=== PATIENT | female | born 1940 | race Caucasian/White ===

== ENCOUNTER → 2024-04-12 | Outpatient (CLI) | payer OTHER, SELFPAY ==
--- NOTE | 2024-04-12 13:30 | XR_ITS ---
Examination: CT abdomen without intravenous contrast. Coronal 2-D reconstructions. Sagittal 2-D reconstructions. Date and time of exam:April 12, 2024 1345 hrs. Indications: Upper abdominal pain several months Comparison: 04/24/2023 CTDI: vol (mGy): 7.7 DLP: (mGycm): 231 Technique: Axial images of the abdomen have been obtained, 3 mm slice thickness, without intravenous contrast 2-D sagittal coronal reconstructions 3-D reconstructions Findings: no focal liver lesions Absent gallbladder Splenule Absent gallbladder 22 mm fat-containing left adrenal mass Moderate bilateral renal parenchymal scar formation Right extrarenal pelvis Aorta normal size Pancreatic head appears prominent Impression: Recommend MRI abdomen pre and postcontrast, MRCP to exclude mass head of the pancreas
== END | disposition home or self-care (01) ==
LOC: CCTX 13:25
PROVIDERS: PCP Internal Medicine; Referring Provider Internal Medicine; Visit Provider Internal Medicine
DX: K86.89 Other specified diseases of pancreas (principal)
CPT/HCPCS: 74150

== ENCOUNTER → 2024-04-29 | Outpatient (CLI) | payer OTHER, SELFPAY ==
[2024-04-29 12:45] LABS: Collection Type, Urine Clean Catch
[2024-04-29 13:09] LABS: Basophils # (Auto) 0.1 Thou/mm3 (0.0-0.2); Basophils % (Auto) 1 % (0-2.5); Eosinophils # (Auto) 0.2 Thou/mm3 (0.0-0.5); Eosinophils % (Auto) 1 % (0-10); Hematocrit 42.4 % (36.0-46.0); Hemoglobin 13.6 g/dL (12.0-16.0); Immature Granulocytes % (Auto) 0 % (0-0); Immature Granulocytes Auto 0.06 Thou/mm3 (0.00-0.00); Lymphocytes # (Auto) 1.7 Thou/mm3 (1.0-4.8); Lymphocytes % (Auto) 11 % (10-50); Mean Corpuscular HGB Conc 32.1 g/dl (31.0-37.0); Mean Corpuscular Hemoglobin 30.9 pg (25.0-35.0); Mean Corpuscular Volume 96 fL (80-100); Monocytes % (Auto) 6 % (0-12); Neutrophils # (Auto) 12.4 Thou/mm3 (1.8-7.7); Neutrophils % (Auto) 81 % (37-80); Nucleated Red Blood Cell % 0 /100 WBC (0); Platelet Count 238 Thou/mm3 (140-440); RDW Standard Deviation 47.1 fL (36.4-46.3); White Blood Count 15.4 Thou/mm3 (3.6-11.0)
[2024-04-29 13:16] LABS: Bacteria,Urine 1+; Bilirubin,Urine Negative (Negative); Blood,Urine Negative (Negative); Clarity,Urine Turbid (Clear/Hazy); Color,Urine Lt-Yellow (Lt Yel-Yel); Glucose, Urine 4+ (Negative); Ketones,Urine Trace (Negative); Leukocyte Esterase,Urine Positive (Negative); Nitrite,Urine Positive (Negative); Protein,Urine Trace (Neg - Trace); RBC,Urine 12 /hpf (0-3); Specific Gravity,Urine 1.024 (1.001-1.035); Squamous Epithelial Cell,Urine 1 /hpf (0-5); Urobilinogen,Urine Negative mg/dL (0.0-1.0); WBC,Urine 54 /hpf (0-5)
[2024-04-29 13:22] LABS: Culture Indicated,Urine Yes
[2024-04-29 13:24] LABS: Glucose Estimated Average 232 mg/dL (80-131); Hemoglobin A1C 9.7 % Hgb (4.8-6.0)
[2024-04-29 13:26] LABS: Creatinine MALB Rnd Ur 84 mg/dL (30-125); Microalbumin Creat Ratio 27 mg/gCrea (<30); Microalbumin, Random Urine 23 mg/L (0-300)
[2024-04-29 13:32] LABS: Alanine Aminotransferase 15 U/L (10-49); Albumin, Serum 4.1 gm/dL (3.4-4.8); Albumin/Globulin Ratio 1.4 (1.2-2.2); Alkaline Phosphatase 121 U/L (46-116); Anion Gap 12 (7-16); Aspartate Amino Transferase 18 U/L (0-34); BUN/Creatinine Ratio 22 Ratio (12-20); Bilirubin,Total 0.6 mg/dL (0.3-1.2); Blood Urea Nitrogen 24 mg/dL (9-23); Calcium 9.1 mg/dL (8.3-10.6); Calcium (Corrected) 9.1 mg/dL (8.5-10.1); Carbon Dioxide 23.3 mMol/L (20.0-31.0); Cardiac Risk Estimate 1.8 RATIO (3.7-5.6); Chloride 105 mMol/L (98-107); Cholesterol 135 mg/dL (132-200); Creatinine (Component) 1.1 mg/dL (0.6-1.3); Globulin 2.9 gm/dL (2.3-3.5); Glucose 266 mg/dL (74-106); HDL Cholesterol 76 mg/dL (40-60); LDL Cholesterol,Calculated 33 mg/dL (0-130); Osmolality,Calculated 292 (275-295); Potassium 3.8 mMol/L (3.4-5.1); Sodium 140 mMol/L (136-145); Thyroid Stimulating Hormone 6.21 uIU/mL (0.55-4.78); Triglycerides 131 mg/dL (30-150); eGFR 50 See Note
[2024-04-29 14:11] LABS: Band Neutrophils (Manual) 4 % (0-6); Eosinophils (Manual) 2 % (0-4); Lymphocytes (Manual) 12 % (20-44); Monocytes (Manual) 4 % (2-9); Neutrophils (Manual) 78 % (50-70)
== END | disposition home or self-care (01) ==
LOC: COPL 11:39
PROVIDERS: PCP Internal Medicine; Referring Provider Internal Medicine; Visit Provider Internal Medicine
DX: E03.9 Hypothyroidism, unspecified (principal); I10 Essential (primary) hypertension; K21.9 Gastro-esophageal reflux disease without esophagitis; E11.65 Type 2 diabetes mellitus with hyperglycemia; R32 Unspecified urinary incontinence
CPT/HCPCS: 36415; 80053; 80061; 81001; 82043; 82570; 83036; 84443; 85025; 87077; 87086; 87186

== ENCOUNTER → 2024-05-27 | Outpatient (CLI) | payer OTHER, SELFPAY ==
--- NOTE | 2024-05-27 | XR_ITS ---
MRI abdomen, without contrast. MRCP Date and time of exam: May 27, 2024 at 1448 hours INDICATIONS: Worsening abdominal pain beginning 2023, pancreatic head appears prominent on CT abdomen pelvis April 12, 2024 Technique: Multiple axial and coronal images of the abdomen have been obtained with the Siemens 1.5T MRI scanner. Images obtained included T1 weighted transverse images, T2-weighted transverse images, T2-weighted transverse images fat-suppressed, T2 weighted haste fat suppressed transverse images, T1 weighted images, in and out of phase images, T2-weighted coronal images, breath hold, T2 weighted haze coronal images as well as T2 weighted coronal thick slab images, MRCP. Findings: No focal liver lesions Absent gallbladder Common hepatic duct 5.6 mm No common bile duct stones noted No pancreatic mass or dilated pancreatic duct No ascites Severe right moderate left renal parenchymal scar formation, no hydronephrosis IMPRESSION: No common hepatic or common bile duct stones No pancreatic mass is noted on this study Recommend 6 month follow-up abdomen sonogram
--- NOTE | 2024-05-27 14:00 | XR_ITS ---
Examination: MRI abdomen with intravenous contrast. MRI abdomen without intravenous contrast. Date and time of exam: May 27, 2024 at 1448 hours INDICATIONS: Generalized abdominal pain several months with prominent pancreatic head on CT abdomen April 12, 2024 Technique: Multiple axial, sagittal and coronal sections of the abdomen obtained. Transverse images, TR 6020, TE 107. T1 weighted transverse images, TR 582, TE 9.5. T2-weighted sagittal images, TR 4000, TE 105. T2-weighted sagittal images, TR 4000, TE 5. Coronal images, TR 4210, TE 107. Axial and coronal images are obtained post 20 cc intravenous injection, gadolinium. Findings: No focal liver lesions No common hepatic or common bile duct stones Pancreas does not appear prominent on this examination No bowel obstruction No hydronephrosis Aorta normal size No ascites No retroperitoneal lymphadenopathy IMPRESSION: Pancreas does not appear prominent on this study Recommend six-month abdominal sonography follow-up with specific attention to the pancreas
== END | disposition home or self-care (01) ==
PROVIDERS: PCP Student in an Organized Health Care Education/Training Program; Referring Provider Student in an Organized Health Care Education/Training Program; Visit Provider Student in an Organized Health Care Education/Training Program
DX: R93.5 Abnormal findings on diagnostic imaging of other abdominal regions, including retroperitoneum (principal)
CPT/HCPCS: 74183; A9579; S8037; 74181

== ENCOUNTER → 2024-06-03 | Outpatient (CLI) | payer OTHER, SELFPAY ==
[2024-06-03 11:33] LABS: Basophils # (Auto) 0.1 Thou/mm3 (0.0-0.2); Basophils % (Auto) 1 % (0-2.5); Eosinophils # (Auto) 0.6 Thou/mm3 (0.0-0.5); Eosinophils % (Auto) 6 % (0-10); Hematocrit 40.1 % (36.0-46.0); Hemoglobin 13.1 g/dL (12.0-16.0); Immature Granulocytes % (Auto) 0 % (0-0); Immature Granulocytes Auto 0.04 Thou/mm3 (0.00-0.00); Lymphocytes # (Auto) 1.6 Thou/mm3 (1.0-4.8); Lymphocytes % (Auto) 16 % (10-50); Mean Corpuscular HGB Conc 32.7 g/dl (31.0-37.0); Mean Corpuscular Hemoglobin 30.5 pg (25.0-35.0); Mean Corpuscular Volume 94 fL (80-100); Monocytes # (Auto) 0.9 Thou/mm3 (0.0-0.8); Monocytes % (Auto) 9 % (0-12); Neutrophils # (Auto) 6.6 Thou/mm3 (1.8-7.7); Neutrophils % (Auto) 68 % (37-80); Nucleated Red Blood Cell % 0 /100 WBC (0); Platelet Count 235 Thou/mm3 (140-440); RDW Standard Deviation 50.5 fL (36.4-46.3); Red Blood Count 4.29 Miln/mm3 (4.00-5.20); White Blood Count 9.7 Thou/mm3 (3.6-11.0)
[2024-06-03 11:52] LABS: Alanine Aminotransferase 13 U/L (10-49); Albumin, Serum 3.7 gm/dL (3.4-4.8); Albumin/Globulin Ratio 1.5 (1.2-2.2); Alkaline Phosphatase 117 U/L (46-116); Anion Gap 7 (7-16); Aspartate Amino Transferase 25 U/L (0-34); BUN/Creatinine Ratio 14 Ratio (12-20); Bilirubin,Total 0.6 mg/dL (0.3-1.2); Blood Urea Nitrogen 14 mg/dL (9-23); Calcium (Corrected) 9.2 mg/dL (8.5-10.1); Carbon Dioxide 27.7 mMol/L (20.0-31.0); Chloride 109 mMol/L (98-107); Globulin 2.5 gm/dL (2.3-3.5); Glucose 142 mg/dL (74-106); Osmolality,Calculated 289 (275-295); Potassium 3.6 mMol/L (3.4-5.1); Sodium 144 mMol/L (136-145); Total Protein 6.2 gm/dL (5.7-8.2); eGFR 57 See Note
[2024-06-03 12:42] LABS: Cocci Serology, IgM Negative (Negative)
[2024-06-04 11:57] LABS: Cocci Serology, IgG Negative (Negative)
== END | disposition home or self-care (01) ==
LOC: SCTO 10:39
PROVIDERS: PCP Internal Medicine; Referring Provider Nurse Practitioner Family; Visit Provider Nurse Practitioner Family
DX: E27.8 Other specified disorders of adrenal gland (principal)
CPT/HCPCS: 36415; 80053; 85025; 86331; 86635

== ENCOUNTER 2024-06-04 13:40 | Outpatient (RCR) | payer OTHER, SELFPAY | END 2024-06-24 23:59 | disposition home or self-care (01) | LOC: SCTC 13:40 | PROVIDERS: PCP Internal Medicine; Referring Provider Internal Medicine; Visit Provider Nurse Practitioner Family | DX: E27.8 Other specified disorders of adrenal gland (principal); R91.8 Other nonspecific abnormal finding of lung field; Z87.19 Personal history of other diseases of the digestive system; Z87.09 Personal history of other diseases of the respiratory system; Z77.22 Contact with and (suspected) exposure to environmental tobacco smoke (acute) (chronic) | CPT/HCPCS: 99212; G0463 ==

== ENCOUNTER → 2024-06-28 | Outpatient (CLI) | payer OTHER, SELFPAY ==
[2024-06-28 12:03] LABS: Basophils # (Auto) 0.1 Thou/mm3 (0.0-0.2); Basophils % (Auto) 1 % (0-2.5); Eosinophils # (Auto) 0.3 Thou/mm3 (0.0-0.5); Eosinophils % (Auto) 3 % (0-10); Hematocrit 38.9 % (36.0-46.0); Hemoglobin 12.3 g/dL (12.0-16.0); Immature Granulocytes % (Auto) 1 % (0-0); Immature Granulocytes Auto 0.05 Thou/mm3 (0.00-0.00); Lymphocytes # (Auto) 1.2 Thou/mm3 (1.0-4.8); Lymphocytes % (Auto) 12 % (10-50); Mean Corpuscular HGB Conc 31.6 g/dl (31.0-37.0); Mean Corpuscular Hemoglobin 31.1 pg (25.0-35.0); Mean Corpuscular Volume 99 fL (80-100); Monocytes # (Auto) 0.9 Thou/mm3 (0.0-0.8); Monocytes % (Auto) 9 % (0-12); Neutrophils # (Auto) 7.9 Thou/mm3 (1.8-7.7); Neutrophils % (Auto) 75 % (37-80); Nucleated Red Blood Cell % 0 /100 WBC (0); Platelet Count 266 Thou/mm3 (140-440); RDW Standard Deviation 51.8 fL (36.4-46.3); Red Blood Count 3.95 Miln/mm3 (4.00-5.20); White Blood Count 10.5 Thou/mm3 (3.6-11.0)
[2024-06-28 12:25] LABS: Free T4 (Free Thyroxine) 1.54 ng/dL (0.89-1.76)
== END | disposition home or self-care (01) ==
LOC: COPL 11:25
PROVIDERS: PCP Internal Medicine; Referring Provider Internal Medicine; Visit Provider Internal Medicine
DX: E03.9 Hypothyroidism, unspecified (principal); I10 Essential (primary) hypertension
CPT/HCPCS: 36415; 84439; 84443; 85025

== ENCOUNTER 2024-08-12 23:13 | Emergency (ER) | payer OTHER, SELFPAY ==
[2024-08-12 23:21] VITALS: BP 177/93; PULSE 71; RESP 20; TEMP 36.7; O2SAT 97
--- NOTE | 2024-08-12 23:44 | XR_ITS ---
Examination: Tibia-Fibula, right , 2 views Technique: Tibia-fibula AP lateral 2 views Date and time of exam: August 13, 2024 0003 hours INDICATIONS: Patient fell today with injury to the lower leg, lower leg pain. FINDINGS: No acute fracture. No dislocation Venous calcifications IMPRESSION: No acute fracture
--- NOTE | 2024-08-12 23:44 | XR_ITS ---
Examination: Foot, right, 3 views Technique: AP, oblique, lateral views foot, 3 views Date and time of exam: August 13, 2024 0003 hours INDICATIONS: Patient fell today with injury of the foot, foot pain. FINDINGS: Moderate osteopenia Moderate bunion deformity 12 mm plantar bony calcaneal spur No acute fracture IMPRESSION: No acute fracture
--- NOTE | 2024-08-13 00:11 | PD.EDFALL ---
ED Fall Injury RME/HPI General Chief Complaint: Fall Stated Complaint: FELL, RIGHT FOOT PAIN AND SWELLING Time Seen by Provider: 08/12/24 23:35 Source: patient Arrival date/time: 08/12/24 23:13 patient had a ground-level fall injuring her right foot as well as her distal right leg. Mode of arrival: wheelchair Limitations: no limitations RME / HPI MD complaint: fall Onset (ago): hour(s) Fall from: standing Location of injury - extremities: Right: ankle and foot Severity: moderate Severity scale (1-10): 6 Related Data Home Medications ?Medication ?Instructions ?Recorded ?Confirmed fluoxetine 40 mg capsule 40 mg PO HS 07/09/21 08/08/23 levothyroxine 100 mcg tablet 100 mcg PO QDAY 07/09/21 08/08/23 insulin glargine 100 unit/mL 20 unit subcut QDAY 07/12/21 08/08/23 subcutaneous cartridge insulin regular human 100 unit/mL 15 unit subcut TID 08/10/21 08/08/23 injection solution (Novolin R Regular U-100 Insulin) clopidogrel 75 mg tablet 75 mg PO QDAY 11/18/21 08/08/23 Held on 07/06/22. Instructions: Resume on 07/08/22. pantoprazole 40 mg tablet,delayed 40 mg PO BID 11/18/21 08/08/23 release (Protonix) losartan 50 mg tablet 50 mg PO QDAY 07/06/22 08/08/23 rosuvastatin 5 mg tablet 5 mg PO QDAY 07/06/22 08/08/23 estradiol 0.01% (0.1 mg/gram) 2 g vaginal DIRECTED 08/08/23 08/08/23 vaginal cream (Estrace) nitrofurantoin 100 mg PO QDAY 08/08/23 08/08/23 monohydrate/macrocrystals 100 mg capsule (Macrobid) Allergies Allergy/AdvReac Type Severity Reaction Status Date / Time Penicillins Allergy Severe Anaphylaxis Verified 08/12/24 23:14 Review of Systems Constitutional Constitutional: Reports system reviewed and no additional complaints, except as documented Eyes Eyes: Reports system reviewed and no additional complaints, except as documented, Denies dry eyes, Denies exophthalmos and Reports floaters Cardiovascular Cardiovascular: Denies chest pain with activity and Denies claudication ED Exam General Limitations: Present no limitations General appearance: Present alert and in no apparent distress Head Head exam: Present atraumatic Eye Eye exam: Present normal appearance and EOMI ENT ENT exam: Present normal exam, normal oropharynx and mucous membranes moist Neck Neck exam: Present normal inspection, full ROM and trachea midline Chest Chest inspection: Present normal inspection and symmetric chest wall rise Extremities Exam Extremities exam: Present normal inspection (The right foot is edematous lateral aspect. Tender to palpation. The toes of the right foot demonstrate decreased range of motion secondary to subjective pain. They appear to be sweating. Neurovascular is intact.) Back Exam Back exam: Present normal inspection and full ROM Neurological Exam Neurological exam: Present alert and oriented X3 Psychiatric Psychiatric exam: Present normal affect and normal mood Skin Skin exam: Present warm, dry, intact and normal color Course Course Course Narrative: Patient will have x-ray of her right foot as well as her right hip. Quality Measures none Orders Category Date Time Status tam wrap [Splint / Immobilizer] STAT Care 08/13/24 02:19 Active XR ankle RT 2V Stat Exams 08/13/24 01:46 Taken XR foot comp RT min 3V Stat Exams 08/12/24 23:44 Taken XR tibia fibula RT 2V Stat Exams 08/12/24 23:44 Taken Ordered Vital Signs Vital signs: Vital Signs Temperature 98.0 F 08/12/24 23:21 Pulse Rate 71 08/12/24 23:21 Respiratory Rate 20 08/12/24 23:21 Blood Pressure 177/93 H 08/12/24 23:21 Pulse Oximetry (%) 97 08/12/24 23:21 Oxygen Delivery Method Room Air 08/12/24 23:21 Pulse ox is 97% room air Fall MDM Narrative MDM Narrative:: Patient is status post fall. Patient data External records reviewed:: Other (specify) Clinical information provided by:: none Social determinants that could affect healthcare access:: none Patient has the following chronic illnesses:: Arthritis How is presenting disease/condition affected by chronic disease/condition?: caused by Evaluation data The following diagnostics were reviewed and interpreted by me:: radiology exam(s) Lab and/or radiology exams considered but not ordered:: Radiology of the ankle foot and the distal tib-fib right do not demonstrate any apparent fracture. They do demonstrate arthritic changes consistent with age. No foreign body seen. Interpretation Summary: Right ankle sprain Medications / Prescriptions Medications or Prescriptions considered but not ordered:: None Medication administrations:: No medication administered Consultations Consultation(s) initiated? (list below): No Diagnosis Fall Differential Diagnosis: dislocation of shoulder region and compression fracture Most likely diagnosis given after review of the tests above:: Right ankle sprain Admission Indicated Admission indicated?: not indicated Admission Request Was there a request for admission?: No Disposition Plan Disposition Plan: Discharge Discharge Attestation Discharge Attestation: The patient and all family members were given an opportunity to ask questions and understood the discharge instructions. Discharge instructions specifically effects, indications for sooner follow up or return to the emergency department, and the expected course of current diagnosis. Patient condition: Stable Discharge Plan Plan Patient Disposition: HOME (Self Care) Discharge Disposition comment: Patient will be discharged in no apparent distress this is after an Tam wrap will be applied to her right foot. Patient condition on transfer: Stable Prescriptions/Referrals Prescriptions/Med Rec: No Action nitrofurantoin monohyd/m-cryst [Macrobid] 100 mg capsule 100 mg PO QDAY Rx Instructions: must administer with a meal/food estradiol [Estrace] 0.01 % (0.1 mg/gram) cream 2 g vaginal DIRECTED Patient Comments: twice a week fluoxetine 40 mg capsule 40 mg PO HS levothyroxine 100 mcg tablet 100 mcg PO QDAY insulin glargine 100 unit/mL Cartridge 20 unit SUBCUT QDAY Novolin R Regular U100 Insulin 100 unit/mL Solution 15 unit SUBCUT TID Rx Instructions: PATIENT ONLY TAKES NEEDED clopidogrel 75 mg Tablet 75 mg PO QDAY pantoprazole [Protonix] 40 mg Tablet,Delayed Release (Dr/Ec) 40 mg PO BID losartan 50 mg Tablet 50 mg PO QDAY rosuvastatin 5 mg Tablet 5 mg PO QDAY Problem List Clinical Impression: Sprain Patient/Caregiver Discharge Instructions Print Language: Citizen Of [place] Stand Alone Forms: [employer] Award Info., Patient Portal Info Letter PA/STORE WORKER Supervising Physician PA/STORE WORKER Supervising Physician: Zachary Aquino
--- NOTE | 2024-08-13 01:46 | XR_ITS ---
Examination: Right ankle 2 views TECHNIQUE: AP lateral right ankle 2 views Date and time: August 13, 2024 0204 hours INDICATIONS: Patient fell yesterday with injury of the ankle, ankle pain. FINDINGS: Old appearing deformity medial malleolus but clinical correlation advised No ankle dislocation IMPRESSION: Old appearing deformity medial malleolus but clinical correlation is advised, recommended short-term follow-up ankle films as clinically warranted
[2024-08-13 02:54] VITALS: RESP 18
== END 2024-08-13 02:54 | disposition home or self-care (01) ==
LOC: SERX 08-13 01:39
PROVIDERS: Emergency Provider Emergency Medicine; PCP Internal Medicine
DX: S93.401A Sprain of unspecified ligament of right ankle, initial encounter (principal); S99.921A Unspecified injury of right foot, initial encounter; S89.91XA Unspecified injury of right lower leg, initial encounter; W18.30XA Fall on same level, unspecified, initial encounter
CPT/HCPCS: 73590; 73600; 73630; 99283

== ENCOUNTER → 2024-08-22 | Outpatient (CLI) | payer OTHER, SELFPAY ==
[2024-08-22 12:07] LABS: Basophils # (Auto) 0.1 Thou/mm3 (0.0-0.2); Basophils % (Auto) 1 % (0-2.5); Eosinophils # (Auto) 0.4 Thou/mm3 (0.0-0.5); Eosinophils % (Auto) 5 % (0-10); Hematocrit 38.3 % (36.0-46.0); Hemoglobin 12.6 g/dL (12.0-16.0); Immature Granulocytes % (Auto) 0 % (0-0); Immature Granulocytes Auto 0.03 Thou/mm3 (0.00-0.00); Lymphocytes % (Auto) 22 % (10-50); Mean Corpuscular HGB Conc 32.9 g/dl (31.0-37.0); Mean Corpuscular Hemoglobin 31.3 pg (25.0-35.0); Mean Corpuscular Volume 95 fL (80-100); Monocytes # (Auto) 0.8 Thou/mm3 (0.0-0.8); Monocytes % (Auto) 9 % (0-12); Neutrophils # (Auto) 5.8 Thou/mm3 (1.8-7.7); Neutrophils % (Auto) 64 % (37-80); Nucleated Red Blood Cell % 0 /100 WBC (0); Platelet Count 267 Thou/mm3 (140-440); RDW Standard Deviation 46.6 fL (36.4-46.3); Red Blood Count 4.02 Miln/mm3 (4.00-5.20); White Blood Count 9.2 Thou/mm3 (3.6-11.0)
[2024-08-22 12:39] LABS: Alanine Aminotransferase 10 U/L (10-49); Albumin/Globulin Ratio 1.7 (1.2-2.2); Alkaline Phosphatase 120 U/L (46-116); Anion Gap 9 (7-16); Aspartate Amino Transferase 22 U/L (0-34); BUN/Creatinine Ratio 14 Ratio (12-20); Bilirubin,Total 0.3 mg/dL (0.3-1.2); Blood Urea Nitrogen 15 mg/dL (9-23); Calcium 8.7 mg/dL (8.3-10.6); Calcium (Corrected) 8.7 mg/dL (8.5-10.1); Carbon Dioxide 26.1 mMol/L (20.0-31.0); Chloride 108 mMol/L (98-107); Creatinine (Component) 1.1 mg/dL (0.6-1.3); Globulin 2.4 gm/dL (2.3-3.5); Glucose 172 mg/dL (74-106); Osmolality,Calculated 289 (275-295); Potassium 4.3 mMol/L (3.4-5.1); Sodium 143 mMol/L (136-145); Total Protein 6.4 gm/dL (5.7-8.2); eGFR 50 See Note
--- NOTE | 2024-08-22 14:00 | XR_ITS ---
Examination: CT abdomen with intravenous contrast. Coronal 2-D reconstructions. Sagittal 2-D reconstructions. Date and time of exam:August 22, 2024 5004 hours Comparison April 12, 2024, MRI abdomen May 27, 2024 INDICATIONS: 22 mm left adrenal mass, prominent pancreatic head on CT abdomen August 10, 2024 CTDI: vol (mGy): 6.27 DLP: (mGycm): 217 Technique: Axial images of the abdomen have been obtained, 3 mm slice thickness, 60 cc Isovue 370 2-D sagittal coronal reconstructions Low dose protocols were performed. One or more of the following dose reduction techniques were used; automated exposure control, adjustment of the mA and/or KV according to patient size, use of iterative reconstruction technique. 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
--- NOTE | 2024-08-22 14:00 | XR_ITS ---
Examination: CT chest, without intravenous contrast. Sagittal and coronal 2-D reconstructions. Exam date and time: August 22, 2024 1504 hours Comparison August 10, 2023 CT chest INDICATIONS: History pulmonary nodules, shortness of breath one year CTDI:vol (mGy) 8.89 DLP: (mGycm) 290 Technique: Multiple 3.0 mm axial sections of the chest to been obtained. Bone and lung density settings are obtained. Sagittal and coronal 2-D reconstructions have been obtained. Low dose protocols were performed. One or more of the following dose reduction techniques were used; automated exposure control, adjustment of the mA and/or KV according to patient size, use of iterative reconstruction technique. Findings: AP dimension ascending thoracic aorta 3.8 cm Pulmonary artery segments are not enlarged No paratracheal tracheobronchial or bronchopulmonary adenopathy Stable bilateral pulmonary nodules No new pulmonary nodules No interval pneumonia or pulmonary edema Retrocardiac gastric hernia IMPRESSION: Stable bilateral pulmonary nodules compared with August 10, 2023
== END | disposition home or self-care (01) ==
LOC: CCTX 14:08
PROVIDERS: PCP Internal Medicine; Referring Provider Nurse Practitioner Family; Visit Provider Nurse Practitioner Family
DX: E27.8 Other specified disorders of adrenal gland (principal); R91.8 Other nonspecific abnormal finding of lung field
CPT/HCPCS: 36415; 71250; 74160; 80053; 85025; A4649; Q9967

== ENCOUNTER 2024-09-04 08:55 | Outpatient (RCR) | payer OTHER, SELFPAY | END 2024-09-23 23:59 | disposition home or self-care (01) | LOC: SCTC 08:55 | PROVIDERS: PCP Internal Medicine; Referring Provider Internal Medicine; Visit Provider Nurse Practitioner Family | DX: R91.8 Other nonspecific abnormal finding of lung field (principal); E27.8 Other specified disorders of adrenal gland; Z77.22 Contact with and (suspected) exposure to environmental tobacco smoke (acute) (chronic); K57.30 Diverticulosis of large intestine without perforation or abscess without bleeding; K42.9 Umbilical hernia without obstruction or gangrene | CPT/HCPCS: 99212; G0463 ==

== ENCOUNTER 2024-12-05 09:25 | Outpatient (RCR) | payer OTHER, SELFPAY | END 2024-12-24 23:59 | disposition home or self-care (01) | LOC: SCTC 09:25 | PROVIDERS: PCP Internal Medicine; Referring Provider Internal Medicine; Visit Provider Nurse Practitioner Family | DX: E27.8 Other specified disorders of adrenal gland (principal); R91.8 Other nonspecific abnormal finding of lung field; K57.30 Diverticulosis of large intestine without perforation or abscess without bleeding; K20.90 Esophagitis, unspecified without bleeding; K31.7 Polyp of stomach and duodenum; K42.9 Umbilical hernia without obstruction or gangrene; Z86.19 Personal history of other infectious and parasitic diseases; Z59.9 Problem related to housing and economic circumstances, unspecified | CPT/HCPCS: 99212; G0463 ==

== ENCOUNTER → 2024-12-05 | Outpatient (CLI) | payer OTHER, SELFPAY ==
[2024-12-05 11:14] LABS: Basophils # (Auto) 0.1 Thou/mm3 (0.0-0.2); Basophils % (Auto) 1 % (0-2.5); Eosinophils # (Auto) 0.3 Thou/mm3 (0.0-0.5); Eosinophils % (Auto) 2 % (0-10); Hematocrit 41.0 % (36.0-46.0); Hemoglobin 13.2 g/dL (12.0-16.0); Immature Granulocytes Auto 0.06 Thou/mm3 (0.00-0.00); Immature Reticulocyte Fraction 7.3 % (3.0-15.9); Lymphocytes # (Auto) 1.4 Thou/mm3 (1.0-4.8); Lymphocytes % (Auto) 12 % (10-50); Mean Corpuscular HGB Conc 32.2 g/dl (31.0-37.0); Mean Corpuscular Hemoglobin 32.6 pg (25.0-35.0); Mean Corpuscular Volume 101 fL (80-100); Monocytes # (Auto) 0.6 Thou/mm3 (0.0-0.8); Monocytes % (Auto) 5 % (0-12); Neutrophils # (Auto) 9.1 Thou/mm3 (1.8-7.7); Neutrophils % (Auto) 79 % (37-80); Nucleated Red Blood Cell # 0.00 Thou/mm3 (0.00-0.00); Nucleated Red Blood Cell % 0 /100 WBC (0); Platelet Count 170 Thou/mm3 (140-440); RDW Standard Deviation 52.9 fL (36.4-46.3); Red Blood Count 4.05 Miln/mm3 (4.00-5.20); Reticulocyte % (Auto) 1.3 % (0.5-1.5); Reticulocyte Absolute Auto 51.0 Biln/L (25.0-75.0); Reticulocyte Hgb Content 34.4 pg (28.0-35.0); White Blood Count 11.6 Thou/mm3 (3.6-11.0)
[2024-12-05 11:32] LABS: Alanine Aminotransferase 14 U/L (10-49); Albumin, Serum 4.0 gm/dL (3.4-4.8); Albumin/Globulin Ratio 1.6 (1.2-2.2); Alkaline Phosphatase 120 U/L (46-116); Anion Gap 10 (7-16); Aspartate Amino Transferase 28 U/L (0-34); BUN/Creatinine Ratio 14 Ratio (12-20); Bilirubin,Total 0.3 mg/dL (0.3-1.2); Blood Urea Nitrogen 20 mg/dL (9-23); Calcium 9.9 mg/dL (8.3-10.6); Calcium (Corrected) 9.9 mg/dL (8.5-10.1); Carbon Dioxide 26.8 mMol/L (20.0-31.0); Chloride 105 mMol/L (98-107); Creatinine (Component) 1.4 mg/dL (0.6-1.3); Globulin 2.5 gm/dL (2.3-3.5); Glucose 376 mg/dL (74-106); LDH (Lactate Dehydrogenase) 184 U/L (120-246); Osmolality,Calculated 300 (275-295); Potassium 4.9 mMol/L (3.4-5.1); Sodium 142 mMol/L (136-145); Total Protein 6.5 gm/dL (5.7-8.2); eGFR 38 See Note
[2024-12-05 17:45] LABS: Ferritin 29 ng/mL (7.3-270.7); Iron 50 mcg/dL (50-170); Percent Iron Saturation 18 % (20-55); Total Iron Binding Capacity 271 mcg/dL (250-425); Unsaturated Iron Binding 221 (225-295)
[2024-12-05 19:18] LABS: Vitamin B12 > 2000 pg/mL (211-911)
[2024-12-11 06:29] LABS: Haptoglobin* 48 mg/dL (43-212)
== END | disposition home or self-care (01) ==
LOC: SCTO 10:30
PROVIDERS: PCP Internal Medicine; Referring Provider Nurse Practitioner Family; Visit Provider Nurse Practitioner Family
DX: E27.8 Other specified disorders of adrenal gland (principal)
CPT/HCPCS: 36415; 80053; 82607; 82728; 83010; 83540; 83550; 83615; 85025; 85046

== ENCOUNTER → 2024-12-30 | Outpatient (CLI) | payer OTHER, SELFPAY ==
--- NOTE | 2024-12-30 16:00 | XR_ITS ---
Examination: CT chest with intravenous contrast CT abdomen with intravenous contrast CT chest without intravenous contrast CT abdomen without intravenous contrast 2-D coronal and sagittal reconstructions Time of exam: December 30, 2024, 1629 hours, comparison August 22, 2024, MR abdomen May 27, 2024 INDICATIONS: Diagnosis other specified disorders of the adrenal gland, left adrenal mass, 22 mm left adrenal mass on CT examination August 10, 2024 CTDI: vol (mGy) : 10.2 DLP: (mGycm): 546 Technique: Multiple axial images of the chest, abdomen and pelvis with intravenous contrast, 3.0 mm slice thickness. Images obtained post intravenous injection Isovue 370 60 cc. 2-D sagittal and coronal reconstructions. Low dose protocols were performed. One or more of the following dose reduction techniques were used; automated exposure control, adjustment of the mA and/or KV according to patient size, use of iterative reconstruction technique. Findings: No thoracic aortic aneurysm dilatation or dissection No pulmonary artery emboli Heavy calcification left anterior descending coronary artery No paratracheal tracheobronchial or bronchopulmonary adenopathy 4 mm 10 mm pulmonary nodules right lower lobe not seen on the August 22, 2024 exam No pneumonia or pulmonary edema No visualized liver lesion No pancreatic mass on this study Absent gallbladder No extrahepatic biliary tract dilatation 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 Normal right adrenal gland Moderate renal scarring Aorta normal size No interval abdominal or pelvic lymphadenopathy No pericecal inflammatory change No diverticulitis or bowel obstruction IMPRESSION: Interval 4 mm 10 mm pulmonary nodules right lower lobe not seen on the August 22, 2024 exam, suggest continued 6 month follow-up CT chest 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
== END | disposition home or self-care (01) ==
PROVIDERS: PCP Internal Medicine; Referring Provider Nurse Practitioner Family; Visit Provider Nurse Practitioner Family
DX: R91.8 Other nonspecific abnormal finding of lung field (principal); E27.8 Other specified disorders of adrenal gland
CPT/HCPCS: 71260; 74170; A4649; Q9967

== ENCOUNTER → 2025-03-03 | Outpatient (CLI) | payer OTHER, SELFPAY ==
[2025-03-03 13:32] LABS: Basophils # (Auto) 0.1 Thou/mm3 (0.0-0.2); Basophils % (Auto) 1 % (0-2.5); Eosinophils # (Auto) 0.4 Thou/mm3 (0.0-0.5); Eosinophils % (Auto) 4 % (0-10); Hematocrit 40.5 % (36.0-46.0); Hemoglobin 13.0 g/dL (12.0-16.0); Immature Granulocytes Auto 0.04 Thou/mm3 (0.00-0.00); Lymphocytes # (Auto) 2.0 Thou/mm3 (1.0-4.8); Lymphocytes % (Auto) 18 % (10-50); Mean Corpuscular HGB Conc 32.1 g/dl (31.0-37.0); Mean Corpuscular Hemoglobin 31.9 pg (25.0-35.0); Mean Corpuscular Volume 99 fL (80-100); Monocytes # (Auto) 0.9 Thou/mm3 (0.0-0.8); Monocytes % (Auto) 8 % (0-12); Neutrophils # (Auto) 7.4 Thou/mm3 (1.8-7.7); Neutrophils % (Auto) 69 % (37-80); Nucleated Red Blood Cell # 0.00 Thou/mm3 (0.00-0.00); Nucleated Red Blood Cell % 0 /100 WBC (0); Platelet Count 212 Thou/mm3 (140-440); RDW Standard Deviation 47.9 fL (36.4-46.3); Red Blood Count 4.08 Miln/mm3 (4.00-5.20); White Blood Count 10.8 Thou/mm3 (3.6-11.0)
[2025-03-03 13:57] LABS: Glucose Estimated Average 243 mg/dL (80-131); Hemoglobin A1C 10.1 % Hgb (4.8-6.0)
[2025-03-03 14:01] LABS: Alanine Aminotransferase 22 U/L (10-49); Albumin, Serum 3.8 gm/dL (3.4-4.8); Albumin/Globulin Ratio 1.2 (1.2-2.2); Alkaline Phosphatase 132 U/L (46-116); Anion Gap 10 (7-16); Aspartate Amino Transferase 43 U/L (0-34); BUN/Creatinine Ratio 12 Ratio (12-20); Bilirubin,Total 0.5 mg/dL (0.3-1.2); Blood Urea Nitrogen 12 mg/dL (9-23); Calcium 9.4 mg/dL (8.3-10.6); Calcium (Corrected) 9.6 mg/dL (8.5-10.1); Carbon Dioxide 28.6 mMol/L (20.0-31.0); Cardiac Risk Estimate 1.6 RATIO (3.7-5.6); Chloride 105 mMol/L (98-107); Cholesterol 131 mg/dL (132-200); Creatinine (Component) 1.0 mg/dL (0.6-1.3); Globulin 3.2 gm/dL (2.3-3.5); Glucose 208 mg/dL (74-106); HDL Cholesterol 81 mg/dL (40-60); LDL Cholesterol,Calculated 35 mg/dL (0-130); Osmolality,Calculated 292 (275-295); Potassium 4.0 mMol/L (3.4-5.1); Sodium 144 mMol/L (136-145); Total Protein 7.0 gm/dL (5.7-8.2); Triglycerides 75 mg/dL (30-150); eGFR 56 See Note
[2025-03-03 15:22] LABS: Creatinine MALB Rnd Ur 106 mg/dL (30-125); Microalbumin Creat Ratio 30 mg/gCrea (<30); Microalbumin, Random Urine 32 mg/L (0-300)
== END | disposition home or self-care (01) ==
LOC: COPL 12:55
PROVIDERS: PCP Internal Medicine; Referring Provider Internal Medicine; Visit Provider Internal Medicine
DX: E11.65 Type 2 diabetes mellitus with hyperglycemia (principal); Z23 Encounter for immunization; E03.9 Hypothyroidism, unspecified; I10 Essential (primary) hypertension
CPT/HCPCS: 36415; 80053; 80061; 82043; 82570; 83036; 85025